=== PATIENT | male | born 1935 | race Caucasian/White ===

== ENCOUNTER 2016-09-02 12:23 | Emergency (ER) | payer OTHER, BC ==
[~2016-09-02] VITALS: Ht 172.7 cm; Wt 85.9 kg
[~2016-09-02 12:23] MED LIST: ADULT LOW DOSE81 M1 PO; BENADRYL ALLERG25 MG PO; ELIQUIS5 MG PO; EXTRA STRENGTH500 M1 PO; FINASTERIDE5 MG PO; FUROSEMIDE20 MG PO; GLUCOSAMINE CH1 EAC7 PO; LEVOTHYROXINE150 MCG PO; LIPITOR80 MG PO; METOPROLOL SUCC50 MG PO; METOPROLOL TART25 MG PO; PLAVIX75 MG PO; RANITIDINE HCL300 MG PO; TOPROL XL25 MG PO; TRIMOX500 MG PO; ZESTRIL,PRINIVIL5 MG PO; ZETIA10 MG PO
[2016-09-02] MEDS ORDERED: TRAMADOL HCL50 MG PO (15:02)
[2016-09-02 15:27] VITALS: BP 115/75
== END 2016-09-02 15:29 | disposition home or self-care (01) ==
LOC: EME 12:23
DX: S86.912A Strain of unspecified muscle(s) and tendon(s) at lower leg level, left leg, initial encounter (principal); M25.552 Pain in left hip; X50.1XXA Overexertion from prolonged static or awkward postures, initial encounter; I10 Essential (primary) hypertension; I48.91 Unspecified atrial fibrillation; Z79.01 Long term (current) use of anticoagulants; Z87.891 Personal history of nicotine dependence
CPT/HCPCS: 73552; 73564; 73590; 99281; 99283